=== PATIENT | female | born 1950 | race Caucasian/White ===

== ENCOUNTER 2017-07-03 12:44 | Emergency (ER) | payer MEDICARE ==
--- NOTE | 2017-07-03 13:37 | RAD ---
FOUR VIEWS LEFT KNEE: 07/03/2017 HISTORY: The patient tripped over a rug on Friday and has had left knee pain since that time. FINDINGS: There are post-surgical changes related to left total knee prosthesis. No hardware complication is seen. There is no evidence of a fracture or dislocation involving the left knee. A small joint eff usion is present in the suprapatellar location. IMPRESSION: 1. No acute osseous abnormality left knee. 2. Left total knee prosthesis. 3. Small joint effusion. POS: [facility]
== END 2017-07-03 14:00 | disposition home or self-care (01) ==
LOC: MADERS 12:44
DX: S80.02XA Contusion of left knee, initial encounter (principal); I10 Essential (primary) hypertension; J44.9 Chronic obstructive pulmonary disease, unspecified; F17.210 Nicotine dependence, cigarettes, uncomplicated; Z79.899 Other long term (current) drug therapy; W19.XXXA Unspecified fall, initial encounter; Y92.009 Unspecified place in unspecified non-institutional (private) residence as the place of occurrence of the external cause